=== PATIENT | female | born 1960 | race Caucasian/White ===

== ENCOUNTER 2016-11-28 14:48 | Emergency (ER) | payer BC ==
[2016-11-28 15:30] LABS: RED BLOOD COUNT 4.79 M/UL (4.00-5.10); WHITE BLOOD COUNT 11.4 K/UL (4.5-11.0)
== END 2016-11-28 21:35 | disposition short-term general hospital (02) ==
LOC: ER1 14:48
PROVIDERS: Physician Assistant
DX: N13.2 Hydronephrosis with renal and ureteral calculous obstruction (principal); N28.89 Other specified disorders of kidney and ureter; Z88.6 Allergy status to analgesic agent; Z88.8 Allergy status to other drugs, medicaments and biological substances
CPT/HCPCS: 36415; 80053; 81001; 83690; 85025; 96374; 96375; 96376; 99284; J1885; J2270; J2405; J7030

== ENCOUNTER → 2016-12-03 | Outpatient (CLI) | payer BC | LOC: KOH-I 11:58 | DX: N20.0 Calculus of kidney (principal); Z96.0 Presence of urogenital implants | CPT/HCPCS: 74000 ==

== ENCOUNTER → 2016-12-24 | Outpatient (CLI) | payer BC | LOC: KOH-I 11:50 | DX: N20.0 Calculus of kidney (principal); Z96.0 Presence of urogenital implants | CPT/HCPCS: 74000 ==

== ENCOUNTER → 2020-10-12 | Outpatient (CLI) | payer BC ==
[~2020-10-12] MED LIST: FLOMAX 0.4 MG0.4 MG PO; KETOROLAC TROME10 MG PO; ZOFRAN ODT 4 MG4 MG PO
== END ==
LOC: EMI 13:38
DX: M25.512 Pain in left shoulder (principal); M19.012 Primary osteoarthritis, left shoulder; M25.812 Other specified joint disorders, left shoulder; M75.82 Other shoulder lesions, left shoulder
CPT/HCPCS: 73221

== ENCOUNTER → 2020-11-09 | Outpatient (CLI) | payer BC | LOC: KOH-I 09-19 10:30 | DX: N20.0 Calculus of kidney (principal); E27.8 Other specified disorders of adrenal gland | CPT/HCPCS: 74176 ==